=== PATIENT | female | born 1985 ===

== ENCOUNTER 2018-05-06 18:27 | Emergency (ER) | payer SELFPAY ==
[2018-05-06 18:41] VITALS: O2SAT 98
[2018-05-06] MEDS ORDERED: Sodium Chloride 0.9% 1,000 ML IV STA ×2 (19:27→20:44)
[2018-05-06 19:59] LABS: ALB/GLOB RATIO 1.3 (1.0-2.1); ALBUMIN 4.1 g/dL (3.5-5.0); ALT/SGPT 103 U/L (9-52); AST/SGOT 88 U/L (14-36); BLOOD UREA NITROGEN 4 mg/dl (7-17); CALCIUM 9.6 mg/dL (8.4-10.2); GFR NON-AFRICAN AMERICAN > 60
[2018-05-06 20:11] LABS: VENOUS BLOOD GAS PCO2 42 mmHg (40-60); VENOUS BLOOD GAS PO2 25 mm/Hg (30-55)
--- NOTE | 2018-05-06 20:11 | ED PDOC ---
HPI: Influenza Time Seen by Provider: 05/06/18 19:19 Chief Complaint: Fever Chief Complaint (Provider): Fever, body aches, and congestion History Per: Patient Exam Limitations: no limitations Symptoms include: fever, bodyaches, nasal congestion Additional complaint(s):: 32 year old female, with no past medical history and is 13 weeks with no abnormalities in first trimester pranatal workup, presents to the ED with 1 day of fever, bodyaches, and congestion. Patient reports has the same symptoms for 3 days. She states she took a low dose of Tylenol but nothing else. Patient also reports she felt like she was having palpitations prompting visit. PMD: none provided Past Medical History Reviewed: Historical Data, Nursing Documentation, Vital Signs Vital Signs: Last Vital Signs Temp 100.2 F H 05/06/18 18:38 Pulse 127 H 05/06/18 18:38 Resp 18 05/06/18 18:38 BP 113/73 05/06/18 18:38 Pulse Ox 98 05/06/18 18:38 - Medical History PMH: No Chronic Diseases - Surgical History Surgical History: No Surg Hx - Family History Family History: States: Unknown Family Hx - Allergies Allergies/Adverse Reactions: Allergies Allergy/AdvReac Type Severity Reaction Status Date / Time No Known Allergies Allergy Verified 05/06/18 19:26 Review of Systems ROS Statement: Except As Marked, All Systems Reviewed And Found Negative Constitutional: Positive for: Fever, Other (Bodyaches) ENT: Positive for: Nose Congestion Cardiovascular: Positive for: Palpitations Physical Exam - Reviewed Nursing Documentation Reviewed: Yes Vital Signs Reviewed: Yes - Physical Exam Appears: Positive for: Uncomfortable Head Exam: Positive for: ATRAUMATIC, NORMOCEPHALIC Skin: Positive for: Normal Color, Warm, Dry Eye Exam: Positive for: Normal appearance ENT: Positive for: Other (rhinorrhea) Neck: Positive for: Normal, Painless ROM Cardiovascular/Chest: Positive for: Regular Rate, Rhythm, Tachycardia Respiratory: Positive for: Normal Breath Sounds. Negative for: Wheezing, Respiratory Distress Gastrointestinal/Abdominal: Positive for: Normal Exam, Soft. Negative for: Tenderness Extremity: Positive for: Normal ROM Neurologic/Psych: Positive for: Alert, Oriented Medical Decision Making Medical Decision Making: Initial Impression: Work up for flu vs other viral illness Initial Plan: --IV fluids --Basic labs --Flu swab --Reassess patient 23:10 Pt with improved vitals and symptoms after 2 L of IV fluids and Tylenol. Influenza A positive. Pt started on Tamiflu and given Rx for 5 days. Pt's present and discussed him registering as a patient to start Tamiflu and to take their kids to the real time analyst if needed for symptoms. Pt already scheduled for PMD appointment next week. Return parameters discussed. Scribe Attestation: Documented by Oscar Armstrong acting as a scribe for Luba Crawford MD. Provider Scribe Attestation: All medical record entries made by the Scribe were at my direction and personally dictated by me. I have reviewed the chart and agree that the record accurately reflects my personal performance of the history, physical exam, medical decision making, and the department course for this patient. I have also personally directed, reviewed, and agree with the discharge instructions and disposition. - Laboratory Results Result Diagrams: 05/06/18 19:40 05/06/18 19:40 Lab Results: Total Bilirubin 0.3 mg/dl (0.2-1.3) 05/06/18 19:40 AST 88 U/L (14-36) H 05/06/18 19:40 ALT 103 U/L (9-52) H 05/06/18 19:40 Alkaline Phosphatase 89 U/L (38-126) 05/06/18 19:40 Total Protein 7.4 G/DL (6.3-8.2) 05/06/18 19:40 Albumin 4.1 g/dL (3.5-5.0) 05/06/18 19:40 Globulin 3.3 gm/dL (2.2-3.9) 05/06/18 19:40 Albumin/Globulin Ratio 1.3 (1.0-2.1) 05/06/18 19:40 - ECG O2 Sat by Pulse Oximetry: 98 Disposition - Clinical Impression Clinical Impression: Influenza A - Disposition Disposition: Routine/Home Disposition Time: 23:10 Condition: IMPROVED Forms: [facility] (Chilean)
[2018-05-06 20:16] LABS: BASO % 0.3 % (0.0-2.0); EOS % 0.3 % (0.0-4.0); HEMOGLOBIN 12.5 g/dL (12.0-16.0); LYMPH % 16.1 % (20.0-40.0); MEAN CELL VOLUME 89.8 fl (81.0-99.0); MEAN CORPUSCULAR HEMOGLOBIN 30.7 pg (27.0-31.0); MEAN CORPUSCULAR HGB CONC 34.1 g/dL (33.0-37.0); MEAN PLATELET VOLUME 10.5 fl (7.2-11.7); MONO # 0.7 K/uL (0.0-0.8); MONO % 10.7 % (0.0-10.0); NEUT # 4.7 K/uL (1.8-7.0); NEUT % 72.6 % (50.0-75.0); NRBC % 0.1 % (0.0-0.0); RBC 4.07 Mil/uL (3.80-5.20); RED CELL DISTRIBUTION WIDTH 13.4 % (11.5-14.5); WHITE BLOOD COUNT 6.5 K/uL (4.8-10.8)
[2018-05-06 23:56] VITALS: BP 103/58; PULSE 98; RESP 19; TEMP 98.5
== END 2018-05-06 23:25 | disposition home or self-care (01) ==
LOC: H.ER 18:27
DX: J10.1 Influenza due to other identified influenza virus with other respiratory manifestations (principal)
CPT/HCPCS: 80053; 82803; 85025; 87804; 96360; 99284; J7030